=== PATIENT | male | born 1975 | race Caucasian/White ===

== ENCOUNTER 2018-07-25 20:20 | Emergency (ER) | payer BC ==
[~2018-07-25] VITALS: Ht 185.4 cm; Wt 97.5 kg
--- NOTE | 2018-07-25 20:34 | NUR ---
Pt walks into ER with c/o right ankle swelling x 1 week. Denies injury or trauma to area.
[2018-07-25 20:53] LABS: BASOPHILS % (AUTO) 0.7 % (0.0-2.0); EOSINOPHILS # (AUTO) 0.3 K/uL (0.0-0.7); EOSINOPHILS % (AUTO) 3.9 % (0.0-7.0); HEMATOCRIT 43.2 % (36.7-47.1); HEMOGLOBIN 14.7 g/dL (12.5-16.3); LYMPHOCYTES % (AUTO) 30.4 % (20.5-51.5); MEAN CORPUSCULAR HEMOGLOBIN 32.6 uug (23.8-33.4); MEAN CORPUSCULAR HGB CONC 34 g/dL (32.5-36.3); MEAN CORPUSCULAR VOLUME 95.5 fL (73.0-96.2); MONOCYTES # (AUTO) 0.5 K/uL (2.0-10.0); MONOCYTES % (AUTO) 7.9 % (0.0-11.0); NEUTROPHILS # (AUTO) 3.8 K/uL (1.8-8.9); NEUTROPHILS % (AUTO) 57.1 % (38.5-71.5); PLATELET COUNT (AUTO) 283 K/uL (152-348); RED BLOOD CELL COUNT(AUTO) 4.53 MIL/uL (4.06-5.63); WHITE BLOOD COUNT (AUTO) 6.7 K/uL (3.6-10.2)
[2018-07-25 21:30] LABS: CREATININE 0.8 mg/dL (0.6-1.3); POTASSIUM 4.1 mmol/L (3.5-5.1)
[2018-07-25 21:36] LABS: BILIRUBIN,DIRECT 0.1 mg/dL (0.0-0.2); BILIRUBIN,TOTAL 0.3 mg/dL (0.2-1.0); TOTAL PROTEIN, SERUM 8.3 g/dL (6.4-8.2)
[2018-07-25] MEDS ORDERED: CEFAZOLIN 1 G VIAL IM ONE (22:00)
[2018-07-25] MEDS ORDERED: CEFAZOLIN 1 G VIAL ONE (22:03)
[2018-07-25] MEDS ORDERED: SULFAMETH/TRIMETH 800/160 MG TABLET ONE (22:11)
--- NOTE | 2018-07-25 22:13 | NUR ---
Patient discharged to home in stable conditon. Written and verbal after care instructions given. Patient verbalizes understanding of instructions. Pt ambulated out of ER in stable gait. No acute distress noted. All belongings w pt. VSS.
[2018-07-25 22:14] VITALS: BP 147/62
[2018-07-25] MEDS ORDERED: SULFAMETH/TRIMETH 800/160 MG TABLET PO ONE (22:15)
== END 2018-07-25 22:14 | disposition home or self-care (01) ==
LOC: ER 20:22
DX: L03.115 Cellulitis of right lower limb (principal); Z90.89 Acquired absence of other organs
CPT/HCPCS: 36415; 80048; 80076; 83605; 85025; 87040 ×2; 93971; 96372; 99284; J0690; A4663